=== PATIENT | male | born 2000 | race Caucasian/White ===

== ENCOUNTER 2019-01-13 01:54 | Emergency (ER) | payer SELFPAY ==
[~2019-01-13] VITALS: Ht 157.5 cm; Wt 72.6 kg
[2019-01-13 02:02] VITALS: Ht 157.5 cm; Wt 72.6 kg
[2019-01-13 02:37] LABS: BASOPHIL % 1.1 % (0-2); PLATELET COUNT 264 x10^3mcL (130-400); RED CELL DISTRIBUTION WIDTH 14.1 % (11.5-14.5)
[2019-01-13 02:43] LABS: CALCIUM 8.3 mg/dL (8.5-10.1); CHLORIDE SERUM 106 mmol/L (98-107); CREATININE SERUM 1.1 mg/dL (0.7-1.3); GFR1 > 60 mL/min; GLUCOSE SERUM 140 mg/dL (74-106); SODIUM SERUM 143 mmol/L (136-145)
[2019-01-13 02:55] LABS: ALBUMIN 3.4 g/dL (3.4-5.0); ALKALINE PHOSPHATASE 85 U/L (46-116); ALT/SGPT 99 U/L (16-63); AST/SGOT 68 U/L (15-37); BILIRUBIN TOTAL 0.4 mg/dL (0.20-1.00)
[2019-01-13 03:32] LABS: AMPHETAMINE QUAL UR NONE DETECTED (See below)
[2019-01-13 04:40] VITALS: BP 132/82
== END 2019-01-13 04:40 | disposition home or self-care (01) ==
LOC: ED 01:54
PROVIDERS: Emergency Medicine
DX: T42.4X1A Poisoning by benzodiazepines, accidental (unintentional), initial encounter (principal); Y92.89 Other specified places as the place of occurrence of the external cause; R73.9 Hyperglycemia, unspecified
CPT/HCPCS: G0480